=== PATIENT | female | born 1960 | race Caucasian/White ===

== ENCOUNTER → 2016-10-14 | Outpatient (CLI) | payer BC ==
[~2016-10-14] MED LIST: ASCA500 PO; ASCO500T16 PO; ASPI81TA21 PO; CETI10TA84 PO; CHOL100027 PO; CYAN10005 PO; FISHOIL PO; LEVO88TA PO; MISCCAP80 PO; VIACTIV
--- NOTE | 2016-10-14 16:47 | MAMMOGRAPHY REPORT ---
BILATERAL DIGITAL SCREENING MAMMOGRAM TOMOSYNTHESIS WITH CAD: 10/14/2016 TECHNIQUE: Breast tomosynthesis in addition to standard 2D mammography was performed. Current study was also evaluated with a Computer Aided Detection (CAD) system. COMPARISON: Comparison is made to exams dated: 10/13/2015 mammogram, 10/10/2014 mammogram, 10/23/2013 m ammogram, 10/06/2012 mammogram, 10/04/2011 mammogram, and 10/06/2010 mammogram - [facility]. BREAST COMPOSITION: The tissue of both breasts is heterogeneously dense, which may obscure small ma sses. FINDINGS: No suspicious masses, calcifications, or areas of architectural distortion are noted in e ither breast. There has been no significant interval change compared to prior exams. A biopsy marke r clip is again noted in the right 12:00 breast. Scattered bilateral benign-appearing calcification s are again noted. IMPRESSION: ACR BI-RADS CATEGORY 2: BENIGN There is no mammographic evidence of malignancy. A 1 year screening mammogram is recommended. The p atient will receive written notification of the results. Approximately 10% of breast cancers are not detected with mammography. A negative mammographic repor t should not delay biopsy if a clinically suggestive mass is present. Vicenta Blevins M.D. /:10/14/2016 16:25:33 Auto Service Mechanic: Violeta LONG(Ministerio)(Fatimah)(BD), [facility] letter sent: Normal 1/2 BI-RADS Code: ACR BI-RADS Category 2: Benign
== END | disposition home or self-care (01) ==
LOC: C.MAMM 15:31
PROVIDERS: ATTEND Obstetrics & Gynecology
DX: Z12.31 Encounter for screening mammogram for malignant neoplasm of breast (principal)

== ENCOUNTER → 2017-02-05 | Outpatient (CLI) | payer BC | END | disposition home or self-care (01) | LOC: C.LABPVFM 10:15 | PROVIDERS: ATTEND Nurse Practitioner | DX: E03.9 Hypothyroidism, unspecified (principal) ==

== ENCOUNTER → 2017-05-11 | Outpatient (CLI) | payer BC ==
[2017-05-11 12:57] LABS: BLOOD UREA NITROGEN 16 mg/dl (7-18); BUN/CREATININE RATIO 17.2 (10-20); CALCIUM 9.3 mg/dl (8.5-10.1); CARBON DIOXIDE 29 mmol/L (21-32); CHLORIDE 107 mmol/L (98-107); CREATININE 0.94 mg/dl (0.60-1.20); GLUCOSE 71 mg/dl (70-99); POTASSIUM 3.8 mmol/L (3.5-5.1); SODIUM 142 mmol/L (136-145)
[2017-05-11 13:03] LABS: CHOLESTEROL/HDL RATIO 2.5
== END | disposition home or self-care (01) ==
LOC: C.LABPVFM 07:37
PROVIDERS: ATTEND Nurse Practitioner
DX: Z13.220 Encounter for screening for lipoid disorders (principal); Z13.1 Encounter for screening for diabetes mellitus; Z51.81 Encounter for therapeutic drug level monitoring

== ENCOUNTER → 2017-10-17 | Outpatient (CLI) | payer BC ==
--- NOTE | 2017-10-18 07:57 | MAMMOGRAPHY REPORT ---
BILATERAL DIGITAL SCREENING MAMMOGRAM TOMOSYNTHESIS WITH CAD: 10/17/2017 CLINICAL HISTORY: Routine screening. TECHNIQUE: Breast tomosynthesis in addition to standard 2D mammography was performed. Current study was also evaluated with a Computer Aided Detection (CAD) system. COMPARISON: Comparison is made to exams dated: 10/14/2016 mammogram, 10/13/2015 mammogram, 10/10/2014 m ammogram, 10/23/2013 mammogram, 10/09/2013 mammogram, and 10/06/2012 mammogram - [facility]. BREAST COMPOSITION: The tissue of both breasts is heterogeneously dense, which may obscure small mas ses. FINDINGS: There is a stable xuan-shaped biopsy marker clip in the 12:00 right breast. No suspicious m ass, architectural distortion or cluster of microcalcifications is seen. IMPRESSION: ACR BI-RADS CATEGORY 1: NEGATIVE There is no mammographic evidence of malignancy. A 1 year screening mammogram is recommended. The pa tient will receive written notification of the results. Approximately 10% of breast cancers are not detected with mammography. A negative mammographic report should not delay biopsy if a clinically suggestive mass is present. Jana Fninegan M.D. ay/:10/18/2017 07:21:28 Sawmill Relief Worker: Eri LONG(R)(M), [facility] letter sent: Normal 1/2 BI-RADS Code: ACR BI-RADS Category 1: Negative
== END | disposition home or self-care (01) ==
LOC: C.MAMM 15:10
PROVIDERS: ATTEND Obstetrics & Gynecology
DX: Z12.31 Encounter for screening mammogram for malignant neoplasm of breast (principal)

== ENCOUNTER → 2018-03-14 | Outpatient (CLI) | payer BC ==
[~2018-03-14] MED LIST changes: +ASPI-319 PO; -ASPI81TA21 PO
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
== END | disposition home or self-care (01) ==
LOC: C.RADPV 15:43
PROVIDERS: ATTEND Nurse Practitioner
DX: S69.90XA Unspecified injury of unspecified wrist, hand and finger(s), initial encounter (principal); X58.XXXA Exposure to other specified factors, initial encounter

== ENCOUNTER → 2018-03-17 | Outpatient (CLI) | payer BC ==
[2018-03-17 13:49] LABS: BLOOD UREA NITROGEN 13 mg/dl (7-18); CALCIUM 9.2 mg/dl (8.5-10.1); CARBON DIOXIDE 30 mmol/L (21-32); CHOLESTEROL 229 mg/dl (0-200); CREATININE 0.96 mg/dl (0.60-1.20); GLUCOSE 87 mg/dl (70-99); LDL CHOLESTEROL CALCULATED 121 mg/dl; SODIUM 142 mmol/L (136-145)
== END | disposition home or self-care (01) ==
LOC: C.LABPVFM 07:21
PROVIDERS: ATTEND Nurse Practitioner
DX: Z13.1 Encounter for screening for diabetes mellitus (principal); Z13.220 Encounter for screening for lipoid disorders; E04.2 Nontoxic multinodular goiter; M25.50 Pain in unspecified joint

== ENCOUNTER 2024-04-27 09:35 | Observation (INO) ==
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
[~2024-04-27 09:35] MED LIST changes: -ASCA500 PO; -ASCO500T16 PO; -ASPI-319 PO; -CETI10TA84 PO; -CHOL100027 PO; -CYAN10005 PO; +DEXAMETHASONE SOD INJ 4 MG/ML VIAL ONE; -FISHOIL PO; -LEVO88TA PO; +LIDOCAINE 2% 2 ML VIAL/AMP(20MG/ML) INFIL ONE; +MIDAZOLAM HCL 1 MG/ML 2ML VIAL ONE; -MISCCAP80 PO; +ONDANSETRON INJ 2 MG/ML 2 ML VIAL ONE; +PROPOFOL IV EMULSION 10 MG/ML 20 ML VIAL IV ONE; +ROCURONIUM BROMIDE 10 MG/ML 5 ML VIAL IV ONE; -VIACTIV; +fentaNYL citrate PF 100 MCG/2 ML VIAL ONE
[2024-04-27] MEDS: LR 15ML/HR IV SCH (10:21)
[2024-04-27] MEDS: SODIUM CHLORIDE 0.9% 1,000 ML IV SCH (10:21)
[2024-04-27] MEDS ORDERED: ATROPINE SULFATE 0.1 MG/ML 10ML SYR IV PRN (10:24)
[2024-04-27] MEDS ORDERED: ePHEDrine sulfate 50 MG/ML AMP IV PRN (10:24)
[2024-04-27] MEDS ORDERED: ONDANSETRON INJ 2 MG/ML 2 ML VIAL IV PRN ×2 (10:24→14:46)
[2024-04-27] MEDS: metroNIDAZOLE 500 MG/100 ML BAG IV SCH (11:25)
--- OUTSIDE RECORDS SUMMARY | 2024-04-27 11:28 | External Medical Summary | Summary of Care ---
Author Name Unknown Organization [facility] Address [address] [place] [address] Phone [phone] Care Team Providers Care Chess Instructor Name Role Phone Christelle Alcala Primary Care Provide r Encounter Details Date Type Department Care Team (Late st Contact Info) Description 04/09/2024 Orders Only Urogynecology [facility] [address] [facility] [place] [address] Randolph Wilcox MD [address] [facility] [place] [address] Allergies No known active allergiesdocumented as of this encounter (statuses as of 04/09/2024) Medications Medication Sig Dispensed Refills Start Date End Date Status MULTI-DAY PLUS MINERALS PO TABS daily Active ASPIRIN 81 MG PO TABS daily Act belinda FISH OIL 1000 MG PO CAPS daily Active VIACTIV 500-500-40 MG-UNT-MCG PO CHEW daily Active Meloxicam 15 MG Oral Tablet Take 15 mg by mouth daily. 04/28/2021 Active Loratadine 10 MG Oral Capsule (Claritin) Take 10 mg by mouth daily. Active Vitamin D3 1.25 MG (07282 UT) Oral Capsule Take 50,000 Units by mouth daily. Active B Complex 100 TR Oral Tablet Extended Release Take by mouth. Active Biotin 1 MG Oral Capsule Take 1 mg by mouth 3 times a day. Active Vitamin C 100 MG Oral Tablet Chewable Take 100 mg by mouth daily. Active Turmeric 500 MG Oral Capsule Take 500 mg by mouth daily. Active documented as of this encounter (statuses as of 04/09/2024) Active Problems No known active problems documented as of this encounter (statuses as of 04/09/2024) Immunizations Name Administration Dates Next Due COVID-19 mRNA, LNP-s, No Pre serve, 2-Dose Series (Pfizer) 01/10/2021,12/20/2020 documented as of this encounter Social History Tobacco Use Types Packs/Day Years Used Date Smoking Tobacco: Never Smokeless Tobacco: Never Alcohol Use Standard Drinks/Week Comments Yes 0 (1 standard drink = 0.6 oz pur e alcohol) AUDIT-C Answer Date Recorded Q1: How often do you have a drink containing alc ohol? Monthly or less 05/05/2021 Q2: How many drinks containi ng alcohol do you have on a typical day when you are drinking? 1 or 2 05/05/2021 Q3: How often do you have si x or more drinks on one occasion? Not asked 05/05/2021 Utilities Answer Date Recorded Do you have trouble paying y our heating, water, or electric bill? (Adult - for ages 18 years and over) Not on file 02/07/2024 Is your family able to pay t he heat, water, or electric bill? (Household - for ages 0-17 years) Not on file 02/07/2024 Does your family have access to good internet? (Household - for ages 0-17 years) Not on file 02/07/2024 Social Connections Answer Date Recorded How often do you feel lonely or isolated from those around you? (Adult - for ages 18 years and over) Not on file 02/07/2024 Sex and Gender Information Value Date Recorded Sex Assigned at Female 01/28/2024 6:07 AM EDT Gender Identity Female 01/28/2024 6:07 AM EDT Sexual Orientation Straight 01/28/2024 6: 07 AM EDT Job Start Date Occupation Industry Not on file Not on file Not on file documented as of this encounter Plan of Treatment Upcoming Encounters Date Type Department Care Team (Late st Contact Info) Description 05/09/2024 8:00 AM EDT Telemed[facility] [address] [address] Randolph Wilcox MD [address] [id number] 05/28/2024 3:30 PM EDT Office Visit Urogynecology [facility] [address] [place] [address] Randolph Wilcox MD [address] [place] [id number] Health Maintenance Due Date Last Done Comments Depression Screening 1972 HIV Screening 1975 Hepatitis C Screening 1978 DTaP,Tdap,and Td Vaccines (1 - Tdap) 1979 Pap Smear 1981 Cervical Cancer Screening 1990 HPV/Co-Test 1990 Mammogram 2000 Cologuard 2005 Colonoscopy 2005 Colorectal Cancer Screening 2005 Fecal Occult Blood Test 2005 Sigmoidoscopy 2005 Lipid Panel 01/29/2011 01/29/2006, 11/27/2004 Influenza Vaccine (FLU shot) (#1) 2024 06/06/2023, 05/26/2022, 06/02/2021, Additional history exists Diabetes Screening 04/05/2027 04/05/2024, 0 12/31/2020, 01/29/2006, Additional history exists Zoster Vaccines Completed 2020, 05/02/2020 COVID-19 Vaccine Completed 05/28/2023, , 07/13/2021, Additional history exists HPV (Gardasil) Vaccine Aged Out No lo nger eligible based on patient's age to complete this topic Hepatitis B Vaccine Aged Out No longe r eligible based on patient's age to complete this topic MENINGOCOCCAL (MENACTRA/MENVEO) Aged Out No longer eligible based on patient's age to complete this topic Pneumococcal Vaccine: Pediatrics (0 to 5 Years) and At-Risk Patients (6 to 64 Years) Aged Out No longer eligible based on patient's age to complete this topic documented as of this encounter Medical Devices Not on filedocumented as of this encounter Procedures Procedure Name Priority Date/Time Associated Diagnosis Comments CHEMISTRY-OUTSIDE Routine 04/05/2024 documented in this encounter Results * (ABNORMAL) CHEMISTRY-OUTSIDE (04/05/2024) Not all results display below - see scan for full detail OUTSIDE LAB (SEE SCANNED REPORT) Comment:SEE SCAN; BMP, CBC, TS CREATININE-OUTSID E LAB 1.19 0.6 - 1.2 MG/DL OUTSIDE LAB (SEE SCANNED REPORT) EGFR-OUTSIDE LAB 48.5 ML/MIN/1.7 3M2 OUTSIDE LAB (SEE SCANNED REPORT) POTASSIUM-OUTSIDE LAB 3.5 3.5 - 5.1 MMOL/L OUTSIDE LAB (SEE SCANNED REPORT) GLUCOSE-OUTSIDE LAB 151(H) 70 - 99 MG/DL OUTSIDE LAB (SEE SCANNED REPORT) HOURS FASTING OUTSID E LAB (SEE SCANNED REPORT) TRIGLYCERIDES-OUT SIDE LAB OUTSIDE LAB (SEE SCANNED REPORT) CHOLESTEROL-OUTSI DE LAB OUTSIDE LAB (SEE SCANNED REPORT) HDL-OUTSIDE LAB OUTS LB LAB (SEE SCANNED REPORT) CHOL/HDL RATIO-OUTSIDE LAB OUTSIDE LA B (SEE SCANNED REPORT) LDL (CALCULATED)-OUTS LB LAB OUTSIDE LAB (SEE SCANNED REPORT) LDL (DIRECT MEASURE)-OUTSIDE LAB OUTSIDE LAB (SEE SCANNED REPORT) HEMOGLOBIN, [id number] LAB OUTSIDE LAB (SEE SCANNED REPORT) PHOSPHORUS-OUTSID E LAB OUTSIDE LAB (SEE SCANNED REPORT) PTH-OUTSIDE LAB OUTS LB LAB (SEE SCANNED REPORT) MICROALBUMIN RATIO-OUTSIDE LAB OUTSIDE LA B (SEE SCANNED REPORT) PROTEIN, UA-OUTSIDE LAB OUTSIDE LAB (SEE SCANNED REPORT) HGB 13.1 12.0 - 16.0 G/DL OUTSIDE LAB (SEE SCANNED REPORT) 04/05/2024 Randolph Wilcox MD LABORATORY OUTSIDE LAB (SEE SCANNED REPORT) documented in this encounter Care Teams Chess Instructor Relationship Specialty Start Date End Date Christelle Alcala CRNP [address] [place], [place] [address] [address] PCP - General Nurse Practitioner 05/05/21 documented as of this encounter
[2024-04-27] MEDS ORDERED: ROCURONIUM BROMIDE 10 MG/ML 5 ML VIAL IV ONE ×5 (12:10)
[2024-04-27] MEDS ORDERED: fentaNYL citrate PF 100 MCG/2 ML VIAL ONE (12:10)
[2024-04-27] MEDS: ceFAZolin 2000MG 2,000 MG/15 ML SYR IV SCH (12:55)
[2024-04-27] MEDS ORDERED: ePHEDrine sulfate 50 MG/5 ML SYR ONE (13:09)
[2024-04-27] MEDS ORDERED: SUGAMMADEX SODIUM 200 MG/2 ML VIAL IV ONE (13:29)
[2024-04-27] MEDS ORDERED: KETOROLAC 30 MG/ML VIAL ONE (14:02)
[2024-04-27] MEDS: BUPIVACAINE 0.5 % 5 MG/1 ML MPF 30ML VIAL ONE (14:29)
[2024-04-27] MEDS: PREMARIN VAG CRM 14 APPLN/30 GM TUBE ONE (14:29)
[2024-04-27] MEDS: LIDOCAINE 1%/EPINEPHRINE 1:100,000 50 ML VIAL ONE (14:30)
--- NOTE | 2024-04-27 14:45 | Operative Report ---
Post Operative Report Pre & Post Diagnosis Operation Date: 04/27/24 11:00 Pre-Op Diagnosis: Uterovaginal Prolapse, Complete, Urethral Hypermobility Post-Op Diagnosis: Uterovaginal Prolapse, Complete, BLAZE, Urethral Hypermobility I identified the patient and participated in the time-out.: Yes Procedure Operation Date: 04/27/24 11:00 Actual Procedures p Robotic Hysterectomy, Bilateral Salpingo-Oophorectomy, Robotic Sacral Colpopexy, Cystoscopy, Sling(Not Applicable) - Randolph Wilcox MD Surgeon Randolph Wilcox MD Support Assistant Grace Elizondo PA-C Estimated Blood Loss 25 Findings Consistent with Post-Op Diagnosis Grade 3 uterine prolapse,grade 1-2 rectocele. Normal cystoscopy with excellent efflux of ureters bilaterally. Normal appearing cervix,uterus, tubes, and ovaries. Fluids crystalloid Specimens cervix,uterus, tubes, ovaries, and vaginal mucosa Drains henao Anesthesia Type General Complications none Disposition Accompanied Patient To Recovery: Yes Disposition: Recovery Room Indications symptomatic uteroaginal prolapse Description of Procedure After Noemi Telegrasphis was correctly identified, the indications, risks, benefits, and alternatives were reviewed. We discussed the risks of infection, bleeding, injury, mesh exposure, pain, and urinary retention. All questions were answered and informed consent was confirmed. She was then taken to the operating room and general anesthesia was provided by anesthesia service. She was placed in Dilshad stirrups, prepped and draped in the usual sterile fashion. Time out was confirmed. A Henao catheter was placed. The cervix was serially dilated and a large V care manipulator was applied. At the umbilicus, an 8 mm incision was made. The 8 mm trocar with Optiview was advanced through the incision, through the fascia, and into the abdominal cavity. On the left, two 8 mm trocars were placed. On the right, two 8 mm trocars were placed. The patient was placed in Trendelenburg position to allow the small bowel to retract from the pelvis. The robot was docked. Robotically, the ureters were identified. The IP ligaments were vessel sealed and transected bilaterally. The round ligaments were vessel sealed and transected bilaterally. The bladder flap was developed and uterine vessels were dissected and isolated. The uterine vessels were then vessel sealed and transected. The colpotomy incision was made following the contours of the cervical cup. The cervix, uterus, tubes and ovaries were delivered out the vagina and sent to pathology as specimen. The vaginal cuff was closed in two layers of running 0 V-lock suture. The bladder was then dissected off the vagina for 6 cm distally. The rectum was dissected off the posterior vagina for 7 cm distally. The peritoneum was incised and extended from the sacral promontory to the right corner of the vagi nal cuff. The Y mesh was then secured to the anterior and posterior vaginal lynn with 2-0 V lock suture in a running fashion. The tail end of the Y mesh was secured to the anterior longitudinal ligament just below the sacral promontory with 2 interrupted sutures of CV 0 gore-cedric sutures. The peritoneal incision was closed with 2-0 V lock suture. Excellent hemostasis was confirmed. The robot was undocked, the trocars were removed, and the incisions were closed with 4-0 Monocryl in a sub cuticular fashion and dressed with surgical glue. The vaginal mucosa overlying the rectocele was infiltrated with 1% lidocaine with epinephrine. A midline incision was made. The edges of the mucosal incision were dissected free from the underlying rectocele. The rectovaginal fascia was then imbricated in the midline with 2-0 Vicryl interrupted sutures in two layers. The excessive mucosa was trimmed and sent to pathology. The incision was closed with 2-0 Vicryl in a running fashion. The Henao was removed and cystoscopy confirmed a normal bladder with excellent efflux of ureters bilaterally. With 250 ml of irrigation fluid, the scope was removed and a Crede maneuver confirmed BLAZE. The Henao was inserted. At the mid- urethra, a 2 cm incision was made with the scalpel. The vaginal mucosa was dissected from the urethra bilaterally to the pubic rami. The Solyx sling anchor was then inserted into the obturator internus muscles bilaterally to allow the sling to gently rest along the posterior urethra without tension. Cystoscopy was repeated which revealed no lesions or lacerations in the bladder dome, trigone, or urethra. The Henao was reinserted. The vaginal mucosal incision was closed with 2-0 Vicryl in a running fashion. The vagina was then packed with vaginal packing and estrogen cream. All sponge, lap, and needle counts were correct x 2. The patient was then awakened and sent to recovery room in good condition, I attest to the content of the Intraoperative Record and any orders documented therein. Any exceptions are noted below. No qualified resident was available. Grace Elizondo PA-C was necessary to assist for patient positioning, retraction, suction, irrigation, incision closure, robotic docking, and robotic instrument exchange.
[2024-04-27] MEDS ORDERED: oxyCODONE/ACETAMINOPHEN 5mg/325mg TAB PO PRN ×2 (14:46)
[2024-04-27] MEDS: fentaNYL citrate PF 100 MCG/2 ML VIAL IV PRN (14:57)
--- NOTE | 2024-04-27 15:36 | Anesthesiology Progress Note ---
Date of Service April 27, 2024 Anesthesia Post Procedure Vital Signs Vital Signs: Temp Pulse Pulse Resp BP Pulse Ox O2 Del Method 04/27/24 15:32 97.5 F L 04/27/24 15:25 52 L 14 112/63 100 Nasal Cannula 04/27/24 15:15 71 15 112/62 100 Nasal Cannula 04/27/24 15:05 67 15 113/63 99 Nasal Cannula 04/27/24 14:55 70 17 119/61 99 Room Air 04/27/24 14:48 96.8 F L 79 17 111/62 100 Room Air 04/27/24 10:17 97.9 F 56 L 18 108/67 99 Room Air O2 Flow Rate 04/27/24 15:32 04/27/24 15:25 4 04/27/24 15:15 4 04/27/24 15:05 4 04/27/24 14:55 04/27/24 14:48 04/27/24 10:17 Transfer of Care Handoff Completed per policy Notes Mental Status: alert / awake / arousable and participated in evaluation Patient Amnestic to Procedure: Yes Nausea / Vomiting: adequately controlled Pain: adequately controlled Airway Patency, RR, SpO2: stable & adequate BP & HR: stable & adequate Hydration State: stable & adequate Anesthetic Complications: no major complications apparent and Pt Satisfied with anesthetic care
[2024-04-27] MEDS: IBUPROFEN 600 MG TAB PO PRN (17:51)
[2024-04-27] MEDS: ACETAMINOPHEN 325 MG TAB PO PRN (19:43)
[2024-04-28 03:30] VITALS: RESP 18
[2024-04-28] MEDS: COUGH DROP (SUGAR FREE) LOZ 24 LOZ/1 BOX BUCCAL STA (03:50)
[2024-04-28 07:16] LABS: Basophils # (auto) 0.01 K/uL (0.00-0.20); Basophils % (auto) 0.1 %; Hematocrit (blood only) 35.7 % (37.0-47.0); Hemoglobin 12.3 g/dl (12.0-16.0); Immature Granulocytes # (auto) 0.05 K/uL (0.01-0.20); Immature Granulocytes % (auto) 0.4 %; Lymphocytes % (auto) 12.8 %; Mean Corpuscular Hemoglobin 30.1 pg (25.0-34.0); Mean Corpuscular Hgb Conc 34.5 g/dL (32.0-36.0); Mean Corpuscular Volume 87.5 fL (80.0-100.0); Mean Platelet Volume 10.1 fL (9.4-12.4); Monocytes # (auto) 0.72 K/uL (0.11-0.59); Monocytes % (auto) 6.2 %; Neutrophils # (auto) 9.42 K/uL (1.40-6.50); Neutrophils % (auto) 80.5 %; Platelet Count 196 K/uL (130-400); RDW Coefficient of Variation 14.5 % (11.5-14.5); RDW Standard Deviation 46.4 fL (36.4-46.3); Red Blood Count 4.08 M/uL (4.20-5.40)
--- NOTE | 2024-04-28 07:35 | Gynecologic Progress Note ---
Date of Service April 28, 2024 Assessment & Plan (1) Uterovaginal prolapse, complete: Plan: Patient recovering well. No complaints. Vaginal packing and Rees removed. Procedure reviewed. Post op instructions reviewed. All questions answered. Anticipate discharge home after voiding trial with PVR bladder scan Present on Admission?: Yes Admission and Anticipated Discharge Date Admission Date: April 27, 2024 Anticipated date of discharge: 04/28/24 Subjective Feeling well. No complaints. Denies SOB, CP, Nausea Review of Systems Review of Systems: All systems reviewed & are unremarkable except as noted in HPI & below Physical Exam Constitutional: WD/WN, vitals as above Eyes: PERRL, conjunctivae normal, anicteric sclerae Neck: trachea midline, no thyromegaly Respiratory: normal respiratory effort Cardiovascular: Rate/Rhythm: regular rate and regular rhythm Gastrointestinal (Abdomen): Inspection/Auscultation: abdomen normal to inspection Skin: no rashes, warm and dry Psychiatric: A+Ox3, euthymic affect Results & Data Vital Signs (Past 12 Hours) Vital Signs Temp Pulse Pulse Resp BP Pulse Ox O2 Del Method 04/28/24 03:29 37 C 80 18 106/65 95 Room Air 04/27/24 22:58 37.1 C 76 16 105/63 94 Room Air 04/27/24 19:41 37 C 70 18 111/66 97 Room Air
[2024-04-28 07:39] LABS: BUN Creatinine Ratio 19.3 (10-20); Calcium 8.6 mg/dl (8.6-10.3); Creatinine Clr Calc Pharmacy 65.2 ml/min; Potassium 3.9 mmol/L (3.5-5.1)
--- OUTSIDE RECORDS SUMMARY | 2024-04-28 07:39 | External Medical Summary | Summary of Care ---
Author Name Unknown Organization [facility] Address [address] [place] [address] Phone [phone] Care Team Providers Care Upholstery Tech Name Role Phone Christelle Alcala Primary Care Provide r Encounter Details Date Type Department Care Team (Late st Contact Info) Description 04/27/2024 Orders Only Urogynecology [facility] [address] [facility] [place] [id number] Grace Elizondo PA-C [address] [place] [address] Allergies No known active allergiesdocumented as of this encounter (statuses as of 04/27/2024) Medications Medication Sig Dispensed Refills Start Date End Date Status MULTI-DAY PLUS MINERALS PO TABS daily Active ASPIRIN 81 MG PO TABS daily Active FISH OIL 1000 MG PO CAPS daily Active VIACTIV 500-500-40 MG-UNT-MCG PO CHEW daily Active Meloxicam 15 MG Oral Tablet Take 15 mg by mouth daily. 04/28/2021 Active Loratadine 10 MG Oral Capsule (Claritin) Take 10 mg by mouth daily. Active Vitamin D3 1.25 MG (66648 UT) Oral Capsule Take 50,000 Units by mouth daily. Active B Complex 100 TR Oral Tablet Extended Release Take by mouth. Active Biotin 1 MG Oral Capsule Take 1 mg by mouth 3 times a day. Active Vitamin C 100 MG Oral Tablet Chewable Take 100 mg by mouth daily. Active Turmeric 500 MG Oral Capsule Take 500 mg by mouth daily. Active Ibuprofen 600 MG Oral Tablet (Motrin) Take 1 Tablet by mouth every 6 hours as needed (for mild, moderate pain). With food. 30 Tablet 04/27/2024 Active oxyCODONE HCl 5 MG Oral Tablet (Oxy IR) Take 1 Tablet by mouth every 4 hours as needed for Pain, Severe. 5 Tablet 04/27/2024 Active documented as of this encounter (statuses as of 04/27/2024) Active Problems No known active problems documented as of this encounter (statuses as of 04/27/2024) Immunizations Name Administration Dates Next Due COVID-19 mRNA, LNP-s, No Pre serve, 2-Dose Series (Storage Made Easy) 01/10/2021,12/20/2020 documented as of this encounter Social [...] Description 05/09/2024 8:00 AM EDT Telemedicine Urogynecology [facility] [address] [place] [id number] Randolph Wilcox MD [address] [place] [id number] 05/28/2024 3:30 PM EDT Office Visit Urogynecology [facility] [address] [place] [id number] Randolph Wilcox MD [address] [place] [id number] Health Maintenance Due Date Last Done Comments Depression Screening 1972 HIV Screening 1975 Hepatitis C Screening 1978 DTap/Tdap Vaccines (1 - Tdap) 1979 Pap Smear [...] Not on filedocumented as of this encounter Care Teams Upholstery Tech Relationship Specialty Start Date End Date Christelle Alcala CRNP [address] [place] [id number] PCP - General Nurse Practitioner 05/05/21 documented as of this encounter
--- NOTE | 2024-04-28 07:41 | Discharge Summary ---
Date of Service April 28, 2024 Admission HPI Per Admitting Provider About a year ago, Noemi Oscar first noticed a vaginal bulge. Now the bulge is becoming more prominent and it is interfering with her daily activities. She has increased urinary frequency every hour, nocturia 2 times a night. On occasion, urge incontinence. Denies BLAZE with coughing or sneezing. She doesn't feel that she empties her bladder completely. She also feels that it makes it more difficult to move her bowels. Admission Exam (Per Admitting) Constitutional WD/WN, vitals as above Eyes PERRL, conjunctivae normal, anicteric sclerae Neck trachea midline, no thyromegaly Respiratory normal respiratory effort Cardiovascular Rate/Rhythm: regular rate and regular rhythm Gastrointestinal (Abdomen) Inspection/Auscultation: abdomen normal to inspection Skin no rashes, warm and dry Psychiatric A+Ox3, euthymic affect Discharge Data Procedures Performed Operation Date: 04/27/24 11:00 Actual Procedures p Robotic Hysterectomy, Bilateral Salpingo-Oophorectomy, Robotic Sacral Colpopexy, Cystoscopy, Sling(Not Applicable) - Randolph Wilcox MD Hospital Course (1) Uterovaginal prolapse, complete: Patient recovering well. No complaints. Vaginal packing and Rees removed. Procedure reviewed. Post op instructions reviewed. All questions answered. Anticipate discharge home after voiding trial with PVR bladder scan
[2024-04-28 11:50] VITALS: BP 121/72; PULSE 71; TEMP 98.8; O2SAT 98
== END 2024-04-28 12:45 | disposition home or self-care (01) ==
LOC: 4E2 09:35 → ASU 09:35